=== PATIENT | female | born 1960 | race Caucasian/White ===

== ENCOUNTER 2019-10-31 00:31 | Outpatient (CLI) | payer OTHER, SELFPAY ==
[2019-10-31 16:46] LABS: SARS-CoV-2 RNA PCR Negative
== END 2019-10-31 00:32 | disposition home or self-care (01) ==
LOC: ANHCOVIDDT 00:31
PROVIDERS: Visit Provider Specialist
DX: Z01.818 Encounter for other preprocedural examination (principal); Z11.59 Encounter for screening for other viral diseases
CPT/HCPCS: 87635; C9803; U0003

== ENCOUNTER 2019-11-03 15:30 | Day surgery (SDC) | payer OTHER, SELFPAY ==
[2019-10-30 16:15] VITALS: BMI 33.4
[2019-11-03] VITALS (9 sets, daily range): BP systolic 114–142; BP diastolic 72–99; PULSE 82–96; RESP 13–20; TEMP 37.3–37.4; O2SAT 94–98; BMI 33.0
[2019-11-03 12:44] LABS: Basophils Percent Auto 0.4 % (0.2-1.2); Eosinophils Absolute Auto 0.2 K/mm3 (0-0.3); Eosinophils Percent Auto 2.7 % (0-4.4); Hematocrit 44.6 % (37.0-47.0); Hemoglobin 14.5 g/dL (12.0-15.0); Immature Granulocyte Absolute 0.04 K/mm3 (0.00-0.031); Immature Granulocyte Percent A 0.6 % (0-0.5); Lymphocytes Absolute Auto 1.53 K/mm3 (0.9-3.2); Lymphocytes Percent Auto 22.6 % (18.3-44.2); Mean Corpuscular HGB Conc 32.5 g/dl (32-36); Mean Corpuscular Hemoglobin 27.9 pg (26-34); Mean Corpuscular Volume 85.8 fl (80-100); Mean Platelet Volume 9.3 fl (7.4-10.4); Monocytes Absolute Auto 0.5 K/mm3 (0.1-0.6); Monocytes Percent Auto 7.5 % (2.6-8.5); Neutrophils Absolute Auto 4.5 K/mm3 (1.3-6.7); Neutrophils Percent Auto 66.2 % (45.5-73.1); Platelet Count Result 275 k/mm3 (150-375); Red Cell Distribution Width 14.3 % (11.5-14.5); White Blood Count 6.8 K/mm3 (4.5-10.0)
[2019-11-03 12:58] LABS: INR 0.9; Prothrombin Time 12.3 Seconds (11.1-14.7)
[2019-11-03 13:00] LABS: Blood Urea Nitrogen 16 mg/dL (7-17); Calcium 9.8 mg/dL (8.4-10.2); Carbon Dioxide 27 mmol/L (22-30); Chloride 101 mmol/L (98-107); Estimated CRCL calculation 101 ml/min; Estimated Glomerular Filt Rate > 60; Glucose 169 mg/dL (65-105); Sodium 138 mmol/L (137-145)
--- NOTE | 2019-11-03 14:08 | PM.IMHP ---
H&P: HPI History of Present Illness Chief complaint: Chest Pain Narrative: Susan Bryan is a 59 year old female 59-year-old lady with history of hypertension, history of dyslipidemia, was seen because of dizziness lightheadedness and chest pain, underwent stress test which was abnormal, she is [facility] today for cardiac catheterization which is semi urgent, in view of significant symptoms and significant abnormality on her stress test PMFSH Social History Social History Gender identity (if verbalized by the patient): Female Meds Home Medications and Allergies Home Medications Medication Instructions Recorded Confirmed Type cetirizine [All Day Allergy 10 mg PO DAILY 10/30/19 10/30/19 History (cetirizine)] cholecalciferol (vitamin D3) 125 mcg PO DAILY 10/30/19 10/30/19 History [Vitamin D3] fluticasone propionate [Allergy 1 spray INTRANASAL DAILY 10/30/19 10/30/19 History Relief (fluticasone)] gabapentin 600 mg PO HS 10/30/19 10/30/19 History hydrochlorothiazide 12.5 mg PO DAILY 10/30/19 10/30/19 History icosapent ethyl [Vascepa] 2 g PO DAILY 10/30/19 10/30/19 History insulin regular hum U-500 conc 0.6 - 0.7 unit CONTINUOUS 10/30/19 10/30/19 History [Humulin R U-500 (Conc) Insulin] SUBCUTANEOUS INFUSION DAILY lisinopril 20 mg PO DAILY 10/30/19 10/30/19 History metformin 500 mg PO DAILY 10/30/19 10/30/19 History metoprolol succinate 50 mg PO DAILY 10/30/19 10/30/19 History pantoprazole 40 mg PO DAILY 10/30/19 10/30/19 History Allergies Allergy/AdvReac Type Severity Reaction Status Date / Time niacin Allergy Unknown Verified 10/30/19 21:37 Penicillins Allergy Hives Verified 10/30/19 21:37 Qjhramj-Kcd-Csc Reductase Allergy Muscle Pain Verified 10/30/19 21:37 Inhibitor Vital Signs Vital Signs - 24 hr 11/03/19 12:42 Temperature 37.3 C Pulse Rate 96 Respiratory Rate 14 Blood Pressure 142/99 H Pulse Oximetry 98 Exam Narrative: Exam Narrative: Awake alert oriented x3 not in acute distress Neck is supple no obvious JVD, no carotid bruit Chest: Good air entry bilaterally, lungs are clear to auscultation and percussion bilaterally Cardiovascular: Regular rate and rhythm, 2/6 systolic murmur noted left sternal border Abdomen: Soft nontender bowel sounds positive Extremities: No edema has good pulses distally bilaterally H&P: Results Labs Labs: Short CBC 11/03/19 Range/Units 12:35 WBC 6.8 (4.5-10.0) K/mm3 Hgb 14.5 (12.0-15.0) g/dL Hct 44.6 (37.0-47.0) % Plt Count 275 (150-375) k/mm3 [facility] 11/03/19 12:35 Sodium 138 Potassium 4.0 Chloride 101 Carbon Dioxide 27 BUN 16 Creatinine 0.60 L Glucose 169 H Calcium 9.8 Assessment and Plan Assessment and plan (1) Angina at rest: Code(s): I20.8 - Other forms of angina pectoris Status: Acute Assessment and Plan: will plan cardiac catheterization. The procedure was discussed with the patient, risks, benefits, and alternative diagnostic measure was explained, patient agreed to the procedure (2) Dizziness: Code(s): R42 - Dizziness and giddiness Status: Acute (3) Abnormal stress electrocardiogram test: Code(s): R94.39 - Abnormal result of other cardiovascular function study Status: Acute
--- NOTE | 2019-11-03 14:10 | WPDMODSED ---
Moderate Sedation Note-Pt Data Patient Data Allergies Allergy/AdvReac Type Severity Reaction Status Date / Time niacin Allergy Unknown Verified 10/30/19 21:37 Penicillins Allergy Hives Verified 10/30/19 21:37 [id number]-Ins-Pnw Reductase Allergy Muscle Pain Verified 10/30/19 21:37 Inhibitor Home Medications Medication Instructions Recorded Confirmed Type cetirizine [All Day Allergy 10 mg PO DAILY 10/30/19 10/30/19 History (cetirizine)] cholecalciferol (vitamin D3) 125 mcg PO DAILY 10/30/19 10/30/19 History [Vitamin D3] fluticasone propionate [Allergy 1 spray INTRANASAL DAILY 10/30/19 10/30/19 History Relief (fluticasone)] gabapentin 600 mg PO HS 10/30/19 10/30/19 History hydrochlorothiazide 12.5 mg PO DAILY 10/30/19 10/30/19 History icosapent ethyl [Vascepa] 2 g PO DAILY 10/30/19 10/30/19 History insulin regular hum U-500 conc 0.6 - 0.7 unit CONTINUOUS 10/30/19 10/30/19 History [Humulin R U-500 (Conc) Insulin] SUBCUTANEOUS INFUSION DAILY lisinopril 20 mg PO DAILY 10/30/19 10/30/19 History metformin 500 mg PO DAILY 10/30/19 10/30/19 History metoprolol succinate 50 mg PO DAILY 10/30/19 10/30/19 History pantoprazole 40 mg PO DAILY 10/30/19 10/30/19 History Current Medications: Active Medications Sodium Chloride (Normal Saline Iv) 500 mls @ 100 mls/hr IV CONT .Q5H [facility] Sedation/Anesthesia: No previous sedation/anesthesia problems (including family history). [facility] Social History Social History Gender identity (if verbalized by the patient): Female Mod Sed Physical Exam Physical Exam Pre Procedural Exam: Normal: Appearance, Eyes, Ears, Nose, Neck, Throat, Airway, Lungs, Heart Size, Heart Rate, Heart Rhythm, Neuro Exam, Abdomen, Liver, Kidneys, Spleen, Breasts, Genitalia, Extremities and Skin Hours since solid foods: 8 Hours since liquid intake: 8 Internal Medicine - PN: Obj Da Vital Signs Vital Signs: Vital Signs - 24 hr 11/03/19 12:42 Temperature 37.3 C Pulse Rate 96 Respiratory Rate 14 Blood Pressure 142/99 H Pulse Oximetry 98 Meds/Results Medications: Active Medications Generic Name Dose Route Start Last Admin Trade Name Shant PRN Reason Stop Dose Admin Sodium Chloride 500 mls @ 100 mls/hr 11/03/19 06:05 Normal Saline Iv IV CONT .Q5H ROS Labs CBC & Chem 7: 11/03/19 12:35 11/03/19 12:35 Labs: Laboratory Results - last 24 hr 11/03/19 11/03/19 11/03/19 12:35 12:35 12:35 WBC 6.8 RBC 5.20 Hgb 14.5 Hct 44.6 MCV 85.8 MCH 27.9 MCHC 32.5 RDW 14.3 Plt Count 275 MPV 9.3 Immature Gran % (Auto) 0.6 H Neut % (Auto) 66.2 Lymph % (Auto) 22.6 [place] % (Auto) 7.5 Eos % (Auto) 2.7 Baso % (Auto) 0.4 Lymph # (Auto) 1.53 [place] # (Auto) 0.5 Eos # (Auto) 0.2 Baso # (Auto) 0.0 Abs Immat Gran (auto) 0.04 H Absolute Neuts (auto) 4.5 Absolute Nucleated RBC 0.0 Nucleated RBC % 0.0 PT 12.3 INR 0.9 Sodium 138 Potassium 4.0 Chloride 101 Carbon Dioxide 27 BUN 16 Creatinine 0.60 L Estim Creat Clear Calc 101 Estimated GFR > 60 Glucose 169 H Calcium 9.8 ASA Classification/Sedation ASA Classification/Sedation ASA Class: II Risks: Risks, benefits and alternatives explained and patient/family accepted plan for sedation. Patient re-evaluated immediately prior to sedation.
--- NOTE | 2019-11-03 14:36 | P.PCNCC_ITS ---
Cardiac Cath Procedure Note Date of procedure:: 11/03/19 Performing physician:: Jc Vance MD Procedure: 1. Left heart catheterization, selective coronary angiogram. 2. Left ventricular angiogram. 3. Conscious sedation. 4. Angio-Seal device for arterial hemostasis Ceramics Engineer: Dr. Jc Vance Complications: None. Sedation: Conscious sedation, local anesthesia, using 1 mg of Versed said, 25 mcg of fentanyl, and using 1% lidocaine for local anesthesia. Technique: After informed consent was obtained from patient, was brought to the seed analysis laboratory assistant, put in the seed analysis laboratory assistant table, prepped and draped in usual sterile fashion. Five Panamanian sheath was inserted into the right common femoral artery, through the sheath 5 [place]amanian JL4 catheter inserted, advanced to the left coronary artery, left coronary artery angiogram was obtained. The catheter was exchanged over guidewire into a 5 [place]amanian JR4 catheter, advanced to the right coronary artery, right coronary artery angiogram was obtained. The catheter then was exchanged over guidewire into this 5 [place]ian pigtail catheter, advanced to left ventricle, left ventricular angiogram was obtained. The catheter then was pulled, the sheath was pulled applying Angio-Seal device for arterial hemostasis. Patient tolerated the procedure no complication, taken from the seed analysis laboratory assistant to his room in stable condition stable vital signs. Hemodynamics: aortic pressure 124/60 . LV pressure 124/04 with LVEDP of 24 mmHg Angiographic findings: Left main: Medium size artery no significant disease or stenosis. Lad medium size artery showed mid LAD, the distal LAD showed diffuse narrowing 40 50%, making the vessel looks very small distally Left circumflex artery, medium size artery, no significant disease or stenosis. RCA: Dominant vessel, showed no significant disease or stenosis LV: Normal size left ventricle with normal left ventricular systolic function. Summary: Mild coronary artery disease, normal left ventricular systolic function. Recommendation: Maximum medical treatment. Risk factor modification.
== END 2019-11-03 18:00 | disposition home or self-care (01) ==
LOC: ANHCATHLAB 11-04 15:30
PROVIDERS: Visit Provider Specialist
PROC: 4A023N7 Measurement of Cardiac Sampling and Pressure, Left Heart, Percutaneous Approach (ICD-10-PCS; CPT 93452; principal; 2019-11-03 14:00)
DX: I25.10 Atherosclerotic heart disease of native coronary artery without angina pectoris (principal); R94.39 Abnormal result of other cardiovascular function study; R42 Dizziness and giddiness; E78.5 Hyperlipidemia, unspecified; I10 Essential (primary) hypertension; E11.9 Type 2 diabetes mellitus without complications; Z79.4 Long term (current) use of insulin; Z79.84 Long term (current) use of oral hypoglycemic drugs
CPT/HCPCS: 36415; 80048; 85025; 85610; 93458; C1760; C1887; C1894; G0269; J1644; J2250; J3010; J7040

== ENCOUNTER 2024-04-22 14:30 | Outpatient (RCR) | payer OTHER, SELFPAY | END 2024-05-25 09:34 | disposition home or self-care (01) | LOC: ANHDMC 14:30 | PROVIDERS: Visit Provider Nurse Practitioner Family | DX: E11.40 Type 2 diabetes mellitus with diabetic neuropathy, unspecified (principal); E11.65 Type 2 diabetes mellitus with hyperglycemia; Z71.89 Other specified counseling | CPT/HCPCS: G0108; G0109 ==

== ENCOUNTER 2024-08-27 14:19 | Outpatient (RCR) | payer OTHER, SELFPAY | END 2024-08-31 16:10 | disposition home or self-care (01) | LOC: ANHDMC 14:19 | PROVIDERS: Visit Provider Nurse Practitioner Family | DX: E11.40 Type 2 diabetes mellitus with diabetic neuropathy, unspecified (principal); E11.65 Type 2 diabetes mellitus with hyperglycemia; Z71.89 Other specified counseling | CPT/HCPCS: G0109 ==